=== PATIENT | female | born 1980 | race Caucasian/White ===

== ENCOUNTER 2020-03-09 00:35 | Emergency (ER) | payer SELFPAY ==
[~2020-03-09] VITALS: Ht 157.5 cm; Wt 64.9 kg
[2020-03-09 00:43] VITALS: Ht 157.5 cm; Wt 64.9 kg
[2020-03-09 00:55] VITALS: BP 129/87
== END 2020-03-09 00:55 | disposition left against medical advice (07) ==
LOC: ED 00:35
DX: Z53.21 Procedure and treatment not carried out due to patient leaving prior to being seen by health care provider (principal)